=== PATIENT | female | born 2000 | race African-American/Black ===

== ENCOUNTER 2023-11-01 22:01 | Emergency (ER) | payer MEDICAID ==
[~2023-11-01] VITALS: Ht 157.5 cm; Wt 91.0 kg
[2023-11-01 22:11] VITALS: BP 142/83; PULSE 67; TEMP 98; O2SAT 100
[2023-11-01 23:18] LABS: BASOPHILS % 1.1 % (0.0-2.0); EOSINOPHILS % 4.3 % (0.0-5.0); HEMATOCRIT. 33.8 % (36.0-48.0); HEMOGLOBIN. 11.1 g/dL (12.0-16.0); LYMPHOCYTES % 42.8 % (20.0-50.0); MEAN CORPUSCULAR HEMOGLOBIN 28.1 pg (28.0-32.0); MEAN CORPUSCULAR HGB CONC 32.8 g/dL (31.0-37.0); MEAN CORPUSCULAR VOLUME 85.6 fL (81.0-99.0); MEAN PLATELET VOLUME 9.1 fl (7.4-10.4); MONOCYTES % 6.4 % (2.0-8.0); NEUTROPHILS % 45.4 % (40.0-76.0); PLATELET 260 x1000/uL (130-400); RED BLOOD CELL COUNT 3.95 mill/uL (4.2-5.4); RED CELL DISTRIBUTION WIDTH 14.4 % (11.6-14.6); WHITE BLOOD COUNT 9.9 x1000/uL (4.5-11.0)
[2023-11-01 23:22] LABS: CHLORIDE 112 mEq/L (98-107); SODIUM 142 mEq/L (136-145)
[2023-11-01 23:23] LABS: CALCIUM 9.1 mg/dL (8.7-10.4); CARBON DIOXIDE 24 mEq/L (21-32)
[2023-11-01 23:28] LABS: CREATININE 0.7 mg/dL (0.6-1.0); GLUCOSE 89 mg/dL (70-105); UREA NITROGEN BLOOD 10 mg/dL (9-23)
[2023-11-01 23:55] VITALS: RESP 19
== END 2023-11-02 01:30 | disposition home or self-care (01) ==
LOC: ER 22:01
DX: R60.0 Localized edema (principal)
CPT/HCPCS: 36415; 80048; 85025; 93970; 99284

== ENCOUNTER 2023-12-23 17:23 | Emergency (ER) | payer MEDICAID ==
[~2023-12-23] VITALS: Ht 157.5 cm; Wt 83.9 kg
[2023-12-23 17:40] VITALS: O2SAT 99
[2023-12-23] MEDS: FAMOTIDINE 20MG TABLET PO ONE (19:30)
[2023-12-23] MEDS ORDERED: HYDR453.3 TP (20:05)
[2023-12-23 20:32] VITALS: BP 134/66; PULSE 98; RESP 14; TEMP 36.78072; O2SAT 99
== END 2023-12-23 20:34 | disposition home or self-care (01) ==
LOC: ER 17:23
DX: S90.862A Insect bite (nonvenomous), left foot, initial encounter (principal); W57.XXXA Bitten or stung by nonvenomous insect and other nonvenomous arthropods, initial encounter; Y93.89 Activity, other specified; Y92.89 Other specified places as the place of occurrence of the external cause; Y99.8 Other external cause status
CPT/HCPCS: 99283